=== PATIENT | female | born 1990 | race Caucasian/White ===

== ENCOUNTER 2020-06-26 12:47 | Outpatient (REF) | payer MEDICAID, SELFPAY ==
[2020-06-30 11:53] LABS: Patient Race White; SARS-CoV-2 RNA Undetected (Undetected); SARS-CoV-2 Specimen Source Nasal
== END 2020-06-26 13:07 ==
LOC: NCHCN 12:47
PROVIDERS: PCP Internal Medicine; Visit Provider Nurse Practitioner Family
DX: F50.9 Eating disorder, unspecified (principal); Z20.828 Contact with and (suspected) exposure to other viral communicable diseases; Z33.1 Pregnant state, incidental
CPT/HCPCS: U0003

== ENCOUNTER 2021-08-12 09:35 | Outpatient (REF) | payer MEDICAID, SELFPAY ==
--- NOTE | 2021-08-12 09:10 | PAPFT_PTH ---
PATIENT: iFor Funes LOC: [facility] U#:[id number] AGE/SX: 30/F ROOM: RE08/12/[address]: Em Burkett : 1990 BED: DIS: 08/12/2021 SPEC #: [id number] RECD: 08/12/21 18:47 STATUS: LIZZIEJaden REQ #: [id number] SHANNEN: 08/12/21 09:[address]: Sweta Burkettlaide DEPT: [facility] Cytology RECD BY: Zahida Conde ENTERED: 08/12/21 18:47 SP TYPE: PAPFT OTHR DR: Sabrina Humphrey Tissues: 1 - CX/ENDOCX FOR PAP SMEARS Procedures: PAP THIN PREP/[facility] Screening Comments: [id number]
[2021-08-12 21:05] LABS: Hemoglobin A1C 5.5 % (<5.7)
[2021-08-12 21:14] LABS: ALT 35 U/L (14-59); AST 16 U/L (15-37); Albumin 4.2 g/dL (3.4-5.0); Alkaline Phosphatase 117 U/L (46-116); Anion Gap 7.2 mmol/L (3-11); BUN 15 mg/dL (7-18); Bilirubin, Total 0.1 mg/dL (0.2-1.0); CO2 28.8 mmol/L (21.0-32.0); CREATININE 0.6 mg/dL (0.55-1.02); Calcium 9.1 mg/dL (8.5-10.1); Calculated LDL 128 mg/dL (<100); Chloride 104 mmol/L (98-107); Cholesterol 198 mg/dL (<200); Glucose 102 mg/dL (74-106); HDL Cholesterol 56 mg/dL (40-60); Potassium 4.4 mmol/L (3.5-5.1); Sodium 140 mmol/L (136-145); TSH (W/Ref FT4) 3.33 uIU/mL (0.36-3.74); Total Protein 7.9 g/dL (6.4-8.2); Triglyceride 70 mg/dL (<150)
== END 2021-08-12 09:36 | disposition home or self-care (01) ==
LOC: NCHCN 09:35
PROVIDERS: PCP Internal Medicine; Visit Provider Nurse Practitioner Family
DX: Z12.4 Encounter for screening for malignant neoplasm of cervix (principal); E28.2 Polycystic ovarian syndrome; Z68.42 Body mass index [BMI] 45.0-49.9, adult
CPT/HCPCS: 80053; 80061; 88142; 83036; 84443

== ENCOUNTER 2022-05-14 18:37 | Outpatient (REF) | payer MEDICAID, SELFPAY ==
[2022-05-14 21:10] LABS: HCT 36.8 % (36.0-46.0); HGB 11.7 g/dL (11.2-15.7); MCH 25.7 pg (27.0-33.0); MCHC 31.8 % (32.0-36.0); MCV 81 fL (80-95); MPV 10.6 fL (8.0-11.0); Platelet Count 404 10^3/uL (130-400); RBC 4.55 10^6/uL (3.93-5.22); RDW 13.2 % (11.7-14.6); WBC 10.03 10^3/uL (4.4-10.8)
[2022-05-14 21:34] LABS: ALT 30 U/L (14-59); AST 23 U/L (15-37); Albumin 4.1 g/dL (3.4-5.0); Alkaline Phosphatase 107 U/L (46-116); Anion Gap 7.6 mmol/L (3-11); BUN 15 mg/dL (7-18); Bilirubin, Total 0.2 mg/dL (0.2-1.0); CO2 29.4 mmol/L (21.0-32.0); CREATININE 0.6 mg/dL (0.55-1.02); Calcium 8.9 mg/dL (8.5-10.1); Chloride 103 mmol/L (98-107); Estimated GFR 123.76 (mL/min/1.73m2); Glucose 103 mg/dL (74-106); Potassium 3.7 mmol/L (3.5-5.1); Sodium 140 mmol/L (136-145); TSH 2.12 uIU/mL (0.36-3.74); Total Protein 8.2 g/dL (6.4-8.2)
== END 2022-05-14 18:38 | disposition home or self-care (01) ==
LOC: NCHCN 18:37
PROVIDERS: PCP Internal Medicine; Visit Provider Nurse Practitioner Family
DX: E66.9 Obesity, unspecified (principal); R11.10 Vomiting, unspecified; N92.0 Excessive and frequent menstruation with regular cycle
CPT/HCPCS: 80053; 85027; 84443

== ENCOUNTER 2022-09-30 17:23 | Outpatient (REF) | payer MEDICAID, SELFPAY ==
[2022-09-30 19:09] LABS: Abs Immature Grans 0.03 10^3/uL (0.0-0.06); Absolute Basophil Count 0.06 10^3/uL (0.0-0.2); Absolute Eosinophil Count 0.16 10^3/uL (0.0-0.7); Absolute Lymphocyte Count 4.15 10^3/uL (1.2-3.4); Absolute Monocyte Count 0.85 10^3/uL (0.1-0.8); Basophils % 0.5; Eosinophils % 1.4; HCT 31.1 % (36.0-46.0); HGB 9.1 g/dL (11.2-15.7); Immature Grans % 0.3; Lymphocytes % 35.3; MCH 20.7 pg (27.0-33.0); MCHC 29.3 % (32.0-36.0); MCV 71 fL (80-95); MPV 10.6 fL (8.0-11.0); Monocytes % 7.2; Neutrophils % 55.3; Platelet Count 514 10^3/uL (130-400); RBC 4.39 10^6/uL (3.93-5.22); RDW 14.9 % (11.7-14.6); RDW-SD 38.2 fL; WBC 11.75 10^3/uL (4.4-10.8)
[2022-09-30 19:25] LABS: Hemoglobin A1C 5.6 % (<5.7)
[2022-09-30 19:33] LABS: HCG Quant, Pregnancy < 1 mIU/mL (1-3)
[2022-09-30 19:37] LABS: Diff Comment Diff Reviewed
[2022-09-30 19:38] LABS: Microcytosis 2+
[2022-10-01 17:43] LABS: Estradiol 39 pg/mL (See Note); Progesterone 0.3 ng/mL (See Table)
[2022-10-01 18:20] LABS: LH 2.7 mIU/mL (See Note)
[2022-10-02 09:55] LABS: Hepatitis B Surface Ag Negative (Negative)
[2022-10-02 10:36] LABS: Syphilis Serology (RPR) Negative (Negative)
[2022-10-02 10:41] LABS: Hepatitis C Ab w Rflx HCV PCR Negative (Negative)
[2022-10-02 10:48] LABS: HIV-1/2 Ag & Ab Screen Negative (Negative)
[2022-10-02 18:31] LABS: Chlamydia Result Negative (Negative); GC Result Negative (Negative)
== END 2022-09-30 17:24 | disposition home or self-care (01) ==
LOC: NCHCN 17:23
PROVIDERS: PCP Internal Medicine; Visit Provider Nurse Practitioner Family
DX: N92.0 Excessive and frequent menstruation with regular cycle (principal); R11.10 Vomiting, unspecified; Z11.59 Encounter for screening for other viral diseases; Z11.4 Encounter for screening for human immunodeficiency virus [HIV]; Z13.1 Encounter for screening for diabetes mellitus; Z11.3 Encounter for screening for infections with a predominantly sexual mode of transmission
CPT/HCPCS: 86803; 87340; 87389; 87491; 87591; 82670; 83002; 83036; 84144; 84702; 85025; 86592

== ENCOUNTER 2025-03-20 16:15 | Outpatient (REF) | payer MEDICAID, SELFPAY ==
[2025-03-20 20:01] LABS: Abs Immature Grans 0.03 10^3/uL (0.0-0.06); HCT 42.5 % (36.0-46.0); HGB 13.9 g/dL (11.2-15.7); Immature Grans % 0.3 %; MCH 26.6 pg (27.0-33.0); MCHC 32.7 % (32.0-36.0); MCV 81 fL (80-95); MPV 10.7 fL (8.0-11.0); Platelet Count 415 10^3/uL (130-400); RBC 5.22 10^6/uL (3.93-5.22); RDW 13.7 % (11.7-14.6); RDW-SD 40.6 fL; WBC 10.83 10^3/uL (4.4-10.8)
[2025-03-20 20:02] LABS: Iron 50 ug/dL (50-170); Total Iron Binding Capacity 408 ug/dL (250-450); Transferrin Sat 12 % (15-50)
[2025-03-20 20:22] LABS: Ferritin 45 ng/mL (8-252); TSH 2.23 uIU/mL (0.36-3.74); Vitamin D 25 Total 11 ng/mL (30-100)
== END 2025-03-20 16:16 | disposition home or self-care (01) ==
LOC: NCHCN 16:15
PROVIDERS: PCP Internal Medicine; Visit Provider Nurse Practitioner Family
DX: D64.9 Anemia, unspecified (principal); G93.32 Myalgic encephalomyelitis/chronic fatigue syndrome
CPT/HCPCS: 82306; 82728; 83540; 83550; 84443; 85025